=== PATIENT | male | born 1940 | race Caucasian/White ===

== ENCOUNTER 2017-03-21 09:13 | Observation (INO) | payer MEDICARE, BC ==
--- NOTE | 2017-03-21 09:17 | ERNOTE ---
Neuro HPI ER Record Presenting Symptoms: weakness Time Seen by Provider: 03/21/17 09:13 Source: patient Allergies/Adverse Reactions: Allergies Allergy/AdvReac Type Severity Reaction Status Date / Time No Known Allergies Allergy Verified 03/21/17 11:41 Home Medications: HOME MEDICATIONS Aspirin [Aspirin Enteric Coated] 325 mg PO DAILY #0 tablet 07/16/12 [Last Taken Unknown] Multivitamin [Multivitamins] 1 each PO DAILY #0 capsule 07/16/12 [Last Taken Unknown] Atorvastatin Calcium [Lipitor] 40 mg PO DAILY 12/19/12 [Last Taken Unknown] - History of Present Illness Narrative: Patient had not symptoms when going to bed last night, woke up with right sided weakness this morning at 06:30, later on states that he noticed some problem around 3 or 4am dropping things when he went to the bathroom, he took two full strength aspirin at some time this morning. He denies any recent illness or head injury. He had a prior CVA about 4-5 years ago, states that he made a complete recovery. He drove himself to the ER Date (Duration): 03/21/17 Time (Timing): 06:30 Onset: upon waking, cannot confirm onset Severity: moderate - Character of Deficits New weakness: Present: RUE Altered sensation: Absent: RUE, RLE, LUE, LLE Additional Deficits: Absent: vision problems, impaired speech, difficulty swallowing, decrease ability to stand, off balance Baseline Cognition: Present: alert, oriented x 4 Baseline Gait: Present: walks w/o assistance Associated Symptoms: Denies: fever/chills, sweating, chest pain, neck/back pain , headache, decreased responsiveness Prior Treament: Reports: similar symptoms before. Denies: recently seen Review of Systems - Review of Systems Constitutional: Absent: recent illness, fever EYE: Absent: vision changes ENT: Present: no symptoms reported Respiratory: Absent: shortness of breath, cough Cardiology: Absent: chest pain Gastrointestinal/Abdominal: Absent: nausea, vomiting, abdominal pain Genitourinary: Present: no symptoms reported Musculoskeletal: Absent: back pain Neurological: Present: See HPI, weakness. Absent: headache, numbness - Patient's Past Medical History Patient History - Cardiac/Respiratory: CVA/Stroke, Hyperlipidemia - Family History Mother Family History - Medical: , No pertinent hx Family History - Cardiac/Respiratory: No pertinent hx Family History - Cancer: Other Father Family History - Medical: , History Unknown Family History - Cardiac/Respiratory: History Unknown, Hypertension Family History - Cancer: History Unknown Sister Family History - Medical: , Alzheimer's Disease Family History - Cardiac/Respiratory: History Unknown Family History - Cancer: History Unknown Physical Exam - Physical Exam General Appearance: Present: wd/wn, alert, no apparent distress, anxious Head Exam: Present: normal inspection, no evidence of injury Eye Exam: Normal inspection: bilateral, PERRL: bilateral Neck: Present: normal inspection, nontender, supple. Absent: carotid bruit Respiratory: Present: no respiratory distress, normal breath sounds, no accessory muscle use, lungs clear Cardiovascular/Chest: Present: regular rate, rhythm, no murmur Gastrointestinal/Abdominal: Present: nontender Extremity Exam: Present: no edema Neurological Exam: Present: alert, oriented, normal mood/affect Skin Exam: Present: normal color, warm/dry Sherry Coma Scale - Assess Eye Opening: Spontaneous Motor: Obeys Commands Verbal: Oriented - Total Coma Scale Total: 15 Initial Stroke Assessment - NIH Stroke Scale Level of Consciousness: Alert LOC Questions (Year and Age): Answers both correctly LOC Commands (open/close eyes/fist): Performs both correctly Lateral Gaze Paresis: None Visual Field Loss: No visual loss Facial Palsy: Minor paralysis Right Arm Motor (10 sec hold): Drift, effort made Left Arm Motor (10 sec hold): No drift Right Leg Motor (5 sec hold): Drift - minimal Left Leg Motor (5 sec hold): No drift Limb Ataxia (finger/nose heel/kebede): Absent Sensory Loss (pinprick arms/legs/face): No sensory loss Language Aphasia (description/naming/reading): No aphasia; normal Dysarthria (speech clarity): Normal articulation Neglect Inattention (visual/tactile/auditory/spatial/person): No neglect Initial Stroke Scale Score:: 4 ED Progress - Results and Orders Patient's Lab Results:: I have reviewed the patient's lab results. - Vital Signs Patient's Vital Signs:: I have reviewed the patient's vital signs. - EKG EKG: NSR, RBBB, other - no acute changes EKG read: Interp. by me - Progress/Reassessment Progress Note-Subjective: 03/21/17 09:[address] with radiologist, subacute findings on right side (not consistent with right sided symptoms) 03/21/17 09:41 patient not in window for TPA, offered transfer to stroke center to be evaluated for possible intervention, patient would like to stay here and not be transferred, understand that treatment options here are very limited 03/21/17 10:[address] De La Vega 03/21/17 10:[address] De La Vega, okay to admit, doesn't want me to order any other testing like MRI now 03/21/17 10:56 right arm drift completely resolved, speech slightly slurred Departure Clinical Impression: CVA (cerebral vascular accident) Qualifiers: CVA mechanism: unspecified Qualified Code(s): I63.9 - Cerebral infarction, unspecified - Departure Disposition: [facility] Condition: Stable
[2017-03-21 09:35] LABS: Hematocrit 39.6 % (42.0-52.0); Hemoglobin 14.2 gm/dL (13.5-18.0); Mean Cell Volume 89.8 fl (78-100); Mean Corpuscular Hemoglobin 32.2 pg (27-31); Mean Corpuscular Hgb Conc 35.9 g/dl (32-36); Mean Platelet Volume 9.4 fl (6.0-9.5); Neutrophil # 3.8 K/mm3 (1.3-6.0); Neutrophil % 59.5 % (42-75.0); Platelet Count 261 K/mm3 (150-450); Red Blood Count 4.41 M/mm3 (4.7-6.0); Red Cell Distribution Width 12.7 % (11.5-14.0); White Blood Count 6.3 K/mm3 (4.0-10.5)
[2017-03-21 09:46] LABS: Prothrombin Time (Patient) 11.4 Seconds (9.0-11.0)
[2017-03-21 09:47] LABS: INR 1.14 INR (0.90-1.10); Partial Thrombolplastin Time 28.5 Seconds (24-32)
[2017-03-21 09:49] LABS: Albumin * 3.8 gm/dl (3.4-5.0); Anion Gap 12.4 mmol/L (6.8-13.8); Bilirubin, Total 0.4 mg/dL (0.0-1.1); Ca. Corrected For Albumin 8.9 mg/dL (8.4-10.2); Calcium * 9.1 mg/dL (7.9-10.9); Carbon Dioxide 25.7 mmol/L (24-32.6); Potassium 4.1 mmol/L (3.4-4.6); Total Protein 7.2 gm/dL (6.2-8.2)
[2017-03-21] MEDS ORDERED: CLOPIDOGREL BISULFATE 75 MG TABLET PO ONE (12:31)
[2017-03-21] MEDS ORDERED: ROSUVASTATIN CALCIUM 20 MG TABLET PO ONE ×2 (12:45→13:30)
--- NOTE | 2017-03-21 17:35 | PN ---
Progess Note - Interim Narrative: ADMISSION NOTE: Patient seen and examined at bedside at approximately 1600 hrs on 03/21/17. 76-year-old WF with a history of HLD, prior CVA[ RT parietal and temporal lobe infarcts, nonhemorrhagic from RT middle cerebral artery/posterior cerebral artery watershed zone with some extension into the temporal lobe-MRI 07/2012] w/ o residual defect, TURP came into the ER for evaluation of right-sided weakness and speech problems which were present on waking up and also at approximately 4: 30 AM. Did not want EP etc. Patient was given clopidogrel 300 mg PO X1, rosuvastatin 40 mg 1 after being admitted into observation. Resolution and speech symptoms and weakness occurred. Will obtain ultrasound of the carotids. Echocardiogram in 2012 unremarkable. Labs reviewed. Mother 39-cervical cancer; father at 83-old age; sister 70's- dementia. SH- 3-4 cigars a week 30 years, quit in 1970s; occasional EtOH. Surgical history:Vasectomy, colonoscopy-04/11; TURP-2010; bilateral cataract surgery. PE: Minimal aphasia and right-sided weakness present. No memory loss. Plantars downgoing. Full H&P to be done by the hospitalist.
--- NOTE | 2017-03-21 21:34 | HP ---
Chief Complaint - Chief Complaint Date of Service: 03/21/17 Time of Service: 21:17 Chief Complaint: right arm weakness and difficulty finding his words History of Present Illness: 76 years old white male adm to the hospital with reports of right arm weakness and difficulty finding his words. pt stated approximately 3am he woke up and was unable to use his hand. Due to aphasia pt isn't able to provide details of his medical history and incident leading up to his hospitalization. His with dementia is unable to give info. Per nurse, pt woke up at 3am reached for and item and it fell. He went back to sleep and upon awake again he felt right side weakness, unsteady gait and unable to find his words. so he drove himself to the ER. PMH significant for HDL,former smoker, CVA 3 yrs ago without residual deficits. In ER CT head: No acute intra-cranial hemorrhage or mass, areas of infarct/ischemia of indeterminate age in the right middle cerebral artery territory which appear to be new since 2012. CXR:stable and No acute findings. pt is outside the window for TPA and stated he want to remains at [facility]. - Patient's Past Medical History Patient History - Medical: No pertinent hx, Cataracts Patient History - Cardiac/Respiratory: CVA/Stroke, Hyperlipidemia, Other - BPH Patient History - Cancer: No Hx of Cancer Patient History - Surgical Procedures: Colonoscopy, Other - TURP, vasectomy Patient History - Other: None - Family History Mother Family History - Medical: , No pertinent hx Family History - Cardiac/Respiratory: No pertinent hx Family History - Cancer: Cervical Father Family History - Medical: , History Unknown Family History - Cardiac/Respiratory: History Unknown, Hypertension Family History - Cancer: History Unknown Sister Family History - Medical: , Alzheimer's Disease Family History - Cardiac/Respiratory: History Unknown Family History - Cancer: History Unknown - Social History Living Situations: spouse Abuse History: No History of abuse Psych History: No pertinent hx Smoking Status: Former smoker Have you smoked in the past 12 months: No Do you dip or chew tobacco: No Smoking Stop Date: 03/05/77 Patient requests Smoking Cessation Consult: No Initiate information on Smoking Cessation: No Alcohol Use: none Drug Use: none - Immunizations Immunizations Up to Date: Yes Hx Pneumococcal Vaccination: More Information Required to Determine History of Influenza Vaccine: More Information Required to Determine Review Of Systems (GEN) - Review of Systems Generalized/Overall Review: Present: Weakness - right side EENTM: Present: No Symptoms Reported Respiratory: Present: No Symptoms Reported Abdominal: Present: No Symptoms Reported Genitourinary: Present: No Symptoms Reported Musculoskeletal: Present: No Symptoms Reported Neurological: Present: Weakness Skin: Present: No Symptoms Reported Endocrine: Present: No Symptoms Reported Allergies/Adverse Reactions: Allergies Allergy/AdvReac Type Severity Reaction Status Date / Time No Known Allergies Allergy Verified 03/21/17 11:41 Home Medications: HOME MEDICATIONS Aspirin [Aspirin Enteric Coated] 325 mg PO DAILY #0 tablet 07/16/12 [Last Taken Unknown] Multivitamin [Multivitamins] 1 each PO DAILY #0 capsule 07/16/12 [Last Taken Unknown] Atorvastatin Calcium [Lipitor] 40 mg PO DAILY 12/19/12 [Last Taken Unknown] Exam - Exam Vital Signs: Vital Signs - Last Taken Temp 36.8 C 03/21/17 19:24 Pulse 68 03/21/17 19:24 Resp 18 03/21/17 19:24 BP 177/95 03/21/17 19:24 Pulse Ox 99 03/21/17 19:24 Constitutional: Present: Alert, Oriented x3, Cooperative, Well developed, Middle aged, Looks Younger than stated age ENT Exam: Present: hearing grossly normal Eye Exam: bilateral eye: normal inspection Neck: Present: full range of motion Back Exam: Present: no CVA tenderness, no vertebral tenderness Breasts: Present: Exam deferred Respiratory: Present: chest non-tender, lungs clear, normal breath sounds, no respiratory distress Cardiovascular/Chest: Present: normal peripheral pulses, regular rate, rhythm, no chest tenderness, no edema, no gallop Peripheral Pulses: dorsalis-pedis (R): 2+, dorsalis-pedis (L): 2+ Abdomen: Present: Normal bowel sounds, soft, nontender, nondistended, no rebound tenderness /Rectal: Present: Exam deferred Extremity: Present: normal range of motion, non-tender, normal inspection, no pedal edema, no calf tenderness, other - left extremities stronger than right Skin Exam: Present: normal color, warm/dry Lymphatic: Present: no adenopathy Neurologic: Present: oriented x 3, abnormal gait, aphasia, motor weakness Appearance: Present: appropriate appearance Eye contact: Present: cooperative, good eye contact Thoughts: Present: normal thought pattern Diagnostic Studies: Laboratory Results WBC 6.3 K/mm3 (4.0-10.5) 03/21/17 09:32 RBC 4.41 M/mm3 (4.7-6.0) L 03/21/17 09:32 Hgb 14.2 gm/dL (13.5-18.0) 03/21/17 09:32 Hct 39.6 % (42.0-52.0) L 03/21/17 09:32 MCV 89.8 fl (78-100) 03/21/17 09:32 MCH 32.2 pg (27-31) H 03/21/17 09:32 MCHC 35.9 g/dl (32-36) 03/21/17 09:32 RDW 12.7 % (11.5-14.0) 03/21/17 09:32 Plt Count 261 K/mm3 (150-450) 03/21/17 09:32 MPV 9.4 fl (6.0-9.5) 03/21/17 09:32 Immature Gran % (Auto) 0.30 % (0.001-0.429) 03/21/17 09:32 Immature Gran # (Auto) 0.02 K/mm3 (0.000-0.0310) 03/21/17 09:32 Neutrophils % 59.5 % (42-75.0) 03/21/17 09:32 Lymphocytes % 26.9 % (20-51) 03/21/17 09:32 Monocytes % 9.8 % (0.0-9) H 03/21/17 09:32 Eosinophils % 2.4 % (0.0-3.0) 03/21/17 09:32 Basophils % 1.1 % (0.0-1.0) H 03/21/17 09:32 Nucleated RBC % 0.0 k/mm3 (0-1) 03/21/17 09:32 Neutrophils # 3.8 K/mm3 (1.3-6.0) 03/21/17 09:32 Lymphocytes # 1.7 k/mm3 (1.5-3.5) 03/21/17 09:32 Monocytes # 0.6 k/mm3 (0.0-1.0) 03/21/17 09:32 Eosinophils # 0.2 k/mm3 (0.0-0.7) 03/21/17 09:32 Absolute Basophils 0.1 k/mm3 (0.0-0.1) 03/21/17 09:32 ESR 14 mm/hr (0-10) H 03/21/17 09:32 PT 11.4 Seconds (9.0-11.0) H 03/21/17 09:32 INR (Anticoag Therapy) 1.14 INR (0.90-1.10) H 03/21/17 09:32 PTT (Leslie) 28.5 Seconds (24-32) 03/21/17 09:32 Sodium 139 mmol/L (132-142) 03/21/17 09:32 Plasma Sodium 139 mmol/L (130-142) 03/21/17 09:32 Potassium 4.1 mmol/L (3.4-4.6) 03/21/17 09:32 Chloride 105 mmol/L (97-106) 03/21/17 09:32 Carbon Dioxide 25.7 mmol/L (24-32.6) 03/21/17 09:32 Anion Gap 12.4 mmol/L (6.8-13.8) 03/21/17 09:32 BUN 20 mg/dL (6-23) 03/21/17 09:32 Creatinine 1.05 mg/dL (0.4-1.4) 03/21/17 09:32 Est GFR (Non-Af Amer) 73 mL/min (60-130) 03/21/17 09:32 BUN/Creatinine Ratio 19.0 (9.0-21.6) 03/21/17 09:32 Random Glucose 124 mg/dL (70-110) H 03/21/17 09:32 Calcium 9.1 mg/dL (7.9-10.9) 03/21/17 09:32 Calcium Adj for Albumin 8.9 mg/dL (8.4-10.2) 03/21/17 09:32 Total Bilirubin 0.4 mg/dL (0.0-1.1) 03/21/17 09:32 AST 24 U/L (0-48) 03/21/17 09:32 ALT 38 U/L (19-67) 03/21/17 09:32 Alkaline Phosphatase 67 U/L (50-170) 03/21/17 09:32 Total Protein 7.2 gm/dL (6.2-8.2) 03/21/17 09:32 Albumin 3.8 gm/dl (3.4-5.0) 03/21/17 09:32 CT head: No acute intra-cranial hemorrhage or mass, areas of infarct/ischemia of indeterminate age in the right middle cerebral artery territory which appear to be new since 2012. CXR:stable and No acute findings. Assessment/Plan - Narrative Narrative: CVA- On adm BP 177/95 pt report right side hemiparesis and aphasia upon awaking approximately 3am. He showed up to ER several hours later. Pt his outside the window for TPA. pt stated he had CVA 3 yrs ago, no residual deficits. Continue with neuro-checks Lipid panel, U/S carotid,Echo and MRI brain pending PT/OT and speech evaluation and treatment. Keep NPO for swallow eval and treat. continue on telemetry He was given plavix 300mg x1 and crestor 40mg x1 in ER Continue Plavix 75mg QD abd crestor 20mg QD Expressive aphasia- Due to CVA plan same as above Hyperlipidemia Crestor 40mg x1 given in ER Lipid panel pending continue with crestor 20mg QD code status: Full VTE ppx:Ambulate GI ppx: pepcid Time 35 minutes and case discussed with Dr De La Vega. - Assessment/Plan (1) CVA (cerebral vascular accident) Problem: Acute Qualifiers: CVA mechanism: unspecified Qualified Code(s): I63.9 - Cerebral infarction, unspecified (2) Aphagia Problem: Acute (3) Hyperlipidemia Problem: Chronic
[2017-03-21] MEDS: FAMOTIDINE 20 MG TABLET PO SCH (22:51)
[2017-03-22 06:25] LABS: Chol/HDL Risk Ratio 1.9 mg/dL (3.3-5.0)
--- NOTE | 2017-03-22 06:26 | PN ---
Subjective - Date and Time Seen Date: 03/22/17 Time: 06:20 Subjective Narrative: patient seen today AOX3 no acute distress, pt stated he feels much better. Gait isn't too unsteady overnight.His right arm feels better and articulate without having to struggle hard to find his words. pt anticipating diagnostic test later today. Objective - Review of Systems Generalized/Overall Review: Reports: No Symptoms Reported EENTM: Reports: No Symptoms Reported Respiratory: Reports: No Symptoms Reported Cardiac: Reports: No Symptoms Reported Abdominal: Reports: No Symptoms Reported Genitourinary Symptoms: Reports: No Symptoms Reported Musculoskeletal Complaints: Reports: Other - gait steady Neurological: Reports: No Symptoms Reported Skin: Reports: No Symptoms Reported Endocrine: Reports: No Symptoms Reported - Vitals Vitals: Last Vital Signs Temp 36.4 C L 03/22/17 03:16 Pulse 108 H 03/22/17 03:16 Resp 18 03/22/17 03:16 BP 147/82 03/22/17 03:16 Pulse Ox 98 03/22/17 03:16 - Exam Constitutional: Present: Alert, Oriented x3, Cooperative, Well nourished, No distress, Elderly ENT Exam: Present: hearing grossly normal Neck: Present: full range of motion Breasts: Present: Exam deferred Respiratory: Present: chest non-tender, lungs clear, normal breath sounds, no respiratory distress Cardiovascular/Chest: Present: normal peripheral pulses, regular rate, rhythm, no chest tenderness, no edema Abdomen: Present: Normal bowel sounds, soft, nontender, nondistended, no rebound tenderness, no hepatospenomegaly /Rectal: Present: Exam deferred Extremity: Present: normal range of motion, non-tender, normal inspection, no pedal edema, no calf tenderness Skin Exam: Present: normal color, warm/dry Neurologic: Present: alert, oriented x 3, aphasia Appearance: Present: appropriate appearance Eye contact: Present: cooperative, good eye contact Thoughts: Present: normal thought pattern Assessment/Plan Plan Narrative: CVA- On adm BP 177/95--->147/82 On adm pt report right side hemiparesis and aphasia upon awaking approximately 3am. He showed up to ER several hours later. Pt his outside the window for TPA. pt stated he had CVA 3 yrs ago, no residual deficits. Continue with neuro-checks Still pending Lipid panel, U/S carotid,Echo and MRI brain PT/OT and speech evaluation and treatment. Keep NPO for swallow eval and treat. continue on telemetry He was given plavix 300mg x1 and crestor 40mg x1 in ER Continue Plavix 75mg QD abd crestor 20mg QD aphasia- gradually improving plan same as above Hyperlipidemia Crestor 40mg x1 given in ER Lipid panel pending continue with crestor 20mg QD code status: Full VTE ppx:Ambulate GI ppx: pepcid Time 20 minutes - Problems/Diagnosis (1) CVA (cerebral vascular accident) Problem: Acute Qualifiers: CVA mechanism: unspecified Qualified Code(s): I63.9 - Cerebral infarction, unspecified (2) Aphagia Problem: Acute (3) Hyperlipidemia Problem: Chronic
[2017-03-22] MEDS: FAMOTIDINE 20 MG TABLET PO SCH (08:24)
[2017-03-22] MEDS ORDERED: MULTIVITAMINS 1 CAP CAPSULE PO SCH (09:00)
[2017-03-22] MEDS ORDERED: ROSUVASTATIN CALCIUM 20 MG TABLET PO SCH (09:00)
[2017-03-22] MEDS ORDERED: CLOPIDOGREL BISULFATE 75 MG TABLET PO SCH (09:00)
[2017-03-22 15:07] VITALS: BP 140/74
--- NOTE | 2017-03-22 22:17 | DS ---
(1) CVA (cerebral vascular accident) Problem: Suspected Qualifiers: CVA mechanism: unspecified Qualified Code(s): I63.9 - Cerebral infarction, unspecified (2) Aphagia Problem: Resolved (3) Hyperlipidemia Problem: Chronic (4) TIA (transient ischemic attack) Problem: Resolved Description of Stay: 76 years old white male adm to the hospital with reports of right arm weakness and difficulty finding his words. pt stated approximately 3am he woke up and was unable to use his hand.Due to aphasia pt wasn't able to provide details of his medical history and incident leading up to his hospitalization.Per nurse, pt woke up at 3am reached for and item and it fell. He went back to sleep and upon awake again he felt right side weakness, unsteady gait and unable to find his words. so he drove himself to the ER.In ER CT head: No acute intra-cranial hemorrhage or mass, areas of infarct/ischemia of indeterminate age in the right middle cerebral artery territory which appear to be new since 2012. CXR:stable and No acute findings. pt is outside the window for TPA and stated he want to remains at [facility]. During this adm pt remains medically stable and s/s resolved totally before discharge. Dr De La Vega plan for MRI brain on Sunday and pt will continue with his daily dose of plavix and crestor. Procedures Performed: none List Procedures: None Results and Findings: CT head: No acute intra-cranial hemorrhage or mass, areas of infarct/ischemia of indeterminate age in the right middle cerebral artery territory which appear to be new since 2012 Discharge Disposition: Home self care Disposition: Home self-care Condition: Stable Discharge Activity: Activity as tolerated Discharge Diet: Low fat/chol Problem Oriented Discharge Instructions to Patient/Family: Stroke Prevention, [id number] Additional Patient Instructions (free text): F/U WITH DR. Ny NEXT WEEK. on 03-29-17 @ 10:45am this is a TCM Appointment. BRAIN MRI ON Sunday03-26-17 @ 2:45pm. at [facility]. Prescriptions (Any new or edited meds): Clopidogrel Bisulfate [Plavix] 75 mg PO DAILY #90 tablet Rosuvastatin Calcium [Crestor] 20 mg PO DAILY #90 tablet Complete Home Medications List: Complete Home Medication List: Multivitamin [Multivitamins] 1 each PO DAILY #0 capsule 07/16/12 Clopidogrel Bisulfate [Plavix] 75 mg PO DAILY #90 tablet 03/22/17 Rosuvastatin Calcium [Crestor] 20 mg PO DAILY #90 tablet 03/22/17 Amb Orders for Discharge: MRI Brain W/WO Contrast * Time Frame: 03/26/17, Location: Determined By Patient
== END 2017-03-22 18:26 | disposition home or self-care (01) ==
LOC: ER 09:13 → INTOOBSV 10:53 → MS 10:53 → INTOOBSV 10:57 → OBSVTOIN 10:57
PROVIDERS: ADMIT Internal Medicine; ATTEND Internal Medicine
DX: I63.9 Cerebral infarction, unspecified; G81.91 Hemiplegia, unspecified affecting right dominant side; Z68.23 Body mass index [BMI] 23.0-23.9, adult; G45.9 Transient cerebral ischemic attack, unspecified; E78.5 Hyperlipidemia, unspecified; M62.81 Muscle weakness (generalized); Z87.891 Personal history of nicotine dependence; I69.920 Aphasia following unspecified cerebrovascular disease
CPT/HCPCS: 36415; 70450; 71045; 80053; 80061; 85025; 85610; 85652; 85730; 92523; 93005; 93880; 97162; 97165; 97530; 99284; G0378; G8978; G8979; G8980; G8987; G8988; G8989

== ENCOUNTER 2019-03-06 09:51 | Observation (INO) ==
[2019-03-06] MEDS ORDERED: KETOROLAC TROMETHAMINE 30 MG/ML VIAL IM ONE (10:38)
--- NOTE | 2019-03-06 10:38 | ERNOTE ---
Upper Extremity HPI - Narrative Date of Service: 03/06/19 - General Extremities Pain Location: shoulder: left Time Seen by Provider: 03/06/19 10:08 Source: patient Exam Limitations: no limitations - Immun/Allergies/Home Medications Immunizations: IMMUNIZATION HX Immunizations Up to Date Yes History of Influenza Vaccine Yes Hx Pneumococcal Vaccination Yes Allergies/Adverse Reactions: Allergies Allergy/AdvReac Type Severity Reaction Status Date / Time No Known Allergies Allergy Verified 03/04/19 08:55 Home Medications: HOME MEDICATIONS cholecalciferol (vitamin D3) 2,000 unit capsule 2,000 unit PO DAILY 10/02/17 [Last Taken Unknown] Multivitamin [One Daily Essential] 1 ea PO DAILY 10/25/17 [Last Taken Unknown] - Pain Score Pain Score #1 Pain Score: 9 - History of Present Illness Narrative: The patient is a 78 year old male who presents for limited mobility to left arm which has been present since Sunday. There are associated symptoms of left shoulder pain, warmth and fatigue. The patient reports pain to left shoulder, 11/12. There are no alleviating factors. There are aggravating factors of activity and palpation. Previous treatments have included: Tylenol with minimal improvement. The past medical history includes: BPH, CVA and HTN. The social history is positive for former smoker. The patient has had no ill contacts. Patient states that he received pneumonia vaccine to left arm. Patient states he developed increased discomfort and aching pain to left arm 3 hours following injection which he felt was just normal related to vaccine. Patient states that since he has had symptoms of chills and diaphoresis and increasing pain to left arm along with limited mobility to left shoulder and elbow joints. Review of Systems - Review of Systems Constitutional: Present: chills, diaphoresis, fatigue, malaise. Absent: fever EYE: Present: no symptoms reported ENT: Present: no symptoms reported. Absent: ear pain, nasal drainage, sore throat Respiratory: Present: no symptoms reported. Absent: shortness of breath, cough Cardiology: Present: no symptoms reported. Absent: chest pain Gastrointestinal/Abdominal: Present: nausea. Absent: vomiting, diarrhea, abdominal pain Genitourinary: Present: no symptoms reported. Absent: dysuria Musculoskeletal: Present: joint pain Skin: Present: no symptoms reported. Absent: rash Neurological: Present: weakness. Absent: numbness, tingling All Other Systems: All systems neg except as marked Medical History (Last Reviewed 03/06/19 @ 10:33 by TATIANA Granados) BPH NOS w ur obs/LUTS Onset Date: Unknown History of basal cell cancer Onset Date: Unknown Arthritis Onset Date: Unknown Hypertension Onset Date: Unknown Cerebral infarct Onset Date: ~03/2017 RT frontal infarct in 2012. left MCA infarct 03/2017 Surgical History: Surgical History (Last Reviewed 03/06/19 @ 10:33 by TATIANA Granados) H/O colonoscopy Onset Date: ~04/18/[address] Auguste H/O transurethral resection of prostate Onset Date: ~06/28/10 History of cataract surgery Onset Date: Unknown bilateral History of esophagogastroduodenoscopy (EGD) Onset Date: 10/25/17 Ayo-w/dilation. Clotest negative, minimal benign reactive gastropathy/chemical gastritis. Hx of vasectomy Onset Date: Unknown Family History: Family History (Last Reviewed 03/06/19 @ 10:33 by TATIANA Granados) Aunt Cancer ovarian, breast, stomach Father , age 83-unknown Heart disease Alcohol abuse Mother , age 30's-uterine Cancer uterine Sister , age 73-Alzheimers Alzheimers disease Sister Alive and well Social History: (Last Reviewed 03/06/19 @ 10:33 by TATIANA Granados) Social History: intermediate: No Marital status: lives independently: Yes household members: spouse number of children: 1 current occupational status: retired Service: Yes branch: [employer] Tobacco: Smoking Status: Former smoker Alcohol: alcohol intake: former alcohol intake frequency: other Substance Use: substance use type: does not use Dietary Habits: caffeine: Yes Personal Safety: victim of physical abuse: No victim of emotional abuse: No Physical Exam - Physical Exam General Appearance: Present: wd/wn, alert, moderate distress Head Exam: Present: normal inspection, no evidence of injury Eye Exam: Normal inspection: bilateral, PERRL: bilateral, EOMI: bilateral Neck: Present: normal inspection, tender lateral - left lateral Respiratory: Present: no respiratory distress, normal breath sounds, no acc essory muscle use, lungs clear Cardiovascular/Chest: Present: regular rate, rhythm, no murmur Peripheral Pulses: N=norm/S=strong/W=weak/B=bound/A=absent: Radial (L): Normal Back Exam: Present: no vertebral tenderness Extremity Exam: Present: decreased range of motion - very minimal abduction to left shoulder, flexion with difficulty to left elbow with full extension, normal ROM to left wrist, normal left hand travel pta, bony tenderness - left shoulder, joint redness - left shoulder with warmth, joint swelling - effusion noted to left shoulder Neurological Exam: Present: alert, oriented, normal mood/affect, no motor/sensory deficits. Absent: motor weakness - normal equal travel pta to bilateral hands Skin Exam: Present: normal color, warm/dry Progress - Date and Time Seen: Date and Time: 03/06/19 10:47 Patient has limited passive ROM to left shoulder, normal ROM to left elbow and wrist. 03/06/19 11:41 Message sent to via eCollect. Requests US. Will present to evaluate patient. 03/06/19 12:32 present for patient evaluation and feels that patient needs MRI for further evaluation, if MRI positive for effusion, proceed with fleuro guided aspirate for evaluation. - Results and Orders Patient's Lab Results:: I have reviewed the patient's lab results. - Vital Signs Patient's Vital Signs:: I have reviewed the patient's vital signs. Vital Signs: Vital Signs 03/06/19 10:03 Temperature 37.1 C Pulse Rate 78 Respiratory Rate 16 Blood Pressure 164/101 H O2 Sat by Pulse Oximetry 99 - X-Ray X-Ray #1 X-Ray: shoulder Interpretation: Reviewed by me X-ray Comments: IMPRESSION: 1. NO ACUTE OSSEOUS ABNORMALITY. 2. SPURRING INVOLVING THE POSTERIOR SUPERIOR ASPECT OF THE GLENOID RIM. 3. HIGH RIDING SHOULDER SUGGESTING CHRONIC ROTATOR CUFF TEAR. Electronically signed by Jossue Ca M.D.. - CT/Ultrasound CT/Ultrasound Narrative: IMPRESSION: 1. 1.8 CM OVAL COLLECTION IN THE MUSCULATURE OF THE LEFT SHOULDER, CORRESPONDING TO THE PALPABLE ABNORMALITY. THIS MOST LIKELY REFLECT A SMALL HEMATOMA. ABSCESS IS CONSIDERED LESS LIKELY BUT IS NOT EXCLUDED. Electronically signed by Jossue Ca M.D.. - Progress/Reassessment Chief Complaint: Upper Extremity Injury/Problem Departure Clinical Impression: Septic arthritis of shoulder, left Qualifiers: Septic arthritis organism: due to unspecified organism Qualified Code(s): M00.9 - Pyogenic arthritis, unspecified - Departure Disposition: Still a patient Condition: Stable
[2019-03-06 10:53] LABS: Hematocrit 39.3 % (42.0-52.0); Hemoglobin 14.1 gm/dL (13.5-18.0); Mean Cell Volume 91.4 fl (78-100); Mean Corpuscular Hemoglobin 32.8 pg (27-31); Mean Corpuscular Hgb Conc 35.9 g/dl (32-36); Mean Platelet Volume 10.3 fl (8-11.3); Platelet Count 276 K/mm3 (150-450); Red Cell Distribution Width 13.1 % (11.5-14.0); White Blood Count 13.9 K/mm3 (4.0-10.5)
[2019-03-06 10:56] LABS: Total Cells Counted 100
[2019-03-06 11:05] LABS: Albumin * 3.4 gm/dl (3.4-5.0); Anion Gap 14.2 mmol/L (6.8-13.8); BUN/Creatinine Ratio 15.9 (9.0-21.6); Bilirubin, Total 0.5 mg/dL (0.0-1.1); Ca. Corrected For Albumin 8.8 mg/dL (8.4-10.2); Calcium * 8.6 mg/dL (7.9-10.9); Carbon Dioxide 25.6 mmol/L (24-32.6); Potassium 3.8 mmol/L (3.4-4.6); Total Protein 7.6 gm/dL (6.2-8.2)
[2019-03-06 11:35] LABS: Atypical (Reactive) Lymph 4 % (0-2); Band 1 % (0-2.0); Eosinophil 2 % (0-3); Lymphocyte 3 % (20-51); Monocyte 12 % (0-9); Neutrophil 78 % (42-75); Neutrophil # 10.8 K/mm3 (1.3-6.0)
[2019-03-06 11:36] LABS: Platelet Estimate Normal (NORMAL)
[2019-03-06 11:37] LABS: RBC Morphology Normal (NORMAL)
[2019-03-06 14:27] LABS: Body Fluid WBC 61949 /uL (0-1000)
[2019-03-06 14:44] LABS: Body Fluid Appearance TURBID (CLEAR); Body Fluid Color YELLOW (COLORLESS)
[2019-03-06] MEDS ORDERED: VANCOMYCIN HCL 1 GM in DEXTROSE 5 % IN WATER 250 ML IV PRN ×2 (15:03)
[2019-03-06] MEDS ORDERED: RINGER'S SOLUTION,LACTATED 1,000 ML IV PRN (15:03)
--- NOTE | 2019-03-06 15:10 | CONS ---
- Reason for consultation (1) Septic arthritis of shoulder, left Date of Service: 03/06/19 HPI - General Date of Service: 03/06/19 Narrative: Dayday is a 78-year-old male who presented to the emergency department today with complaint of progressively increasing left shoulder pain and swelling over the last couple days. He states he received a Pneumovax vaccine on and noticed the symptoms the following day. He denies fevers or chills and complains only of pain in the left shoulder. He denies any other recent illnesses or penetrating injuries to the shoulder. We have been consulted for evaluation and management. I instructed the emergency department to obtain an ultrasound which revealed a small hematoma versus abscess in the deltoid consistent with the patient's history of a vaccine. [facility] also [facility] to have radiology perform an aspiration of the shoulder, which was done. This demonstrated cloudy synovial fluid and cell count revealed a white count of over 61,000, consistent with septic arthritis. - History of Present Illness Allergies/Adverse Reactions: Allergies No Known Allergies Allergy (Verified 03/04/19 08:55) Home Medications: Home Medications Medication Instructions Recorded Last Taken cholecalciferol (vitamin D3) 2,000 2,000 unit PO DAILY 10/02/17 Unknown unit capsule Multivitamin [One Daily Essential] 1 ea PO DAILY 10/25/17 Unknown Procedures Colonoscopy (04/18/06) Insertion of intraocular lens prosthesis at time of cataract extraction, one- stage (03/17/13) Phacoemulsification and aspiration of cataract (03/17/13) Prophylactic administration of vaccine against other diseases (07/15/12) Review of Systems - Review of Systems Narrative: As per HPI, otherwise negative. Physical Examination - Exam Narrative: Gen: alert, oriented to person, place, and time Resp: breathing non-labored on RA, normal breath sounds CV: RRR, no murmurs MSK: Left shoulder --> shoulder diffusely swollen with palpable effusion, very mild diffuse erythema, tender to palpation diffusely, severe pain with passive motion, no obvious wounds about the shoulder, distal capillary refill brisk, sensation intact light touch throughout all nerve distributions of the left upper extremity Radiology: Ultrasound of the shoulder demonstrates a approximately 1-1/2 cm diameter fluid collection in the deltoid consistent with hematoma versus abscess. Plain films of the shoulder demonstrate mild degenerative changes with no other obvious abnormalities. Vital Signs: Vital Signs - Last Taken Temp 37.1 C 03/06/19 13:00 Pulse 63 03/06/19 14:25 Resp 15 03/06/19 14:25 BP 136/78 03/06/19 14:25 Pulse Ox 97 03/06/19 14:25 O2 Oxygen Delivery Method Room Air - Results and Findings: Narrative: 78-year-old male with septic left shoulder. Patient's exam and aspirate results are consistent with septic arthritis. It is unclear whether or not this is directly related to the patient's vaccine. It would be highly unlikely for the vaccine needle to penetrate intra-articularly. The other possibility is that this formed an abscess in the deltoid that has now spread to the joint. I counseled the patient on the need for urgent irrigation and debridement of the shoulder. We will do this arthroscopically and potentially make a small incision over the deltoid abscess to address that portion of the infection in an open fashion. I counseled the patient on the risk of surgery including, but not limited to, continued infection, need for additional procedures, axillary nerve injury, postinfectious arthritis, and risks with anesthesia. After discussion he wishes to proceed with surgery. -Plan for arthroscopic irrigation and debridement of the left shoulder with possible open drainage of deltoid abscess today. -Patient n.p.o. for the last 9 hours. -Hold antibiotics until intraoperative cultures were obtained. Will give 1 g of vancomycin intraoperatively. -Plan to admit patient postoperatively for IV antibiotics. -Continue IV antibiotics postoperatively for at least 24 hours pending culture results. Lab/Microbiology results last 24 hrs: Abnormal/Pending Laboratory Last 24 HRS 03/06/19 03/06/19 03/06/19 Unknown 10:32 10:32 WBC 13.9 H RBC 4.30 L Hct 39.3 L MCH 32.8 H Neutrophils % (Manual) 78 H Lymphocytes % (Manual) 3 L Monocytes % (Manual) 12 H Neutrophils # (Manual) 10.8 H Lymphocytes # (Manual) 0.4 L Monocytes # (Manual) 1.7 H Atypic/Reactive Lymphs 4 H Anion Gap 14.2 H AST 49 H C-Reactive Prot, Quant 21.0 H Fluid WBC 04736 H Fluid RBC Greater than 1000.0 H - Assessments/Findings (1) Septic arthritis of shoulder, left Problem: Acute
[2019-03-06] MEDS ORDERED: KETOROLAC TROMETHAMINE 30 MG/ML VIAL ONE (15:29)
[2019-03-06] MEDS ORDERED: PROPOFOL VIAL IV ONE (15:29)
[2019-03-06] MEDS ORDERED: ONDANSETRON HCL/PF 2 MG/ML VIAL ONE (15:29)
[2019-03-06] MEDS ORDERED: fentaNYL CITRATE/PF 50 MCG/ML AMPUL ONE (15:29)
[2019-03-06] MEDS ORDERED: LIDOCAINE HCL 20 ML VIAL ONE (15:31)
[2019-03-06] MEDS ORDERED: BUPIVACAINE HCL 50 ML VIAL IJ ONE ×2 (16:08→16:40)
[2019-03-06] MEDS ORDERED: oxyCODONE HCL/ACETAMINOPHEN 1 TAB TABLET PO PRN (17:20)
[2019-03-06] MEDS ORDERED: ONDANSETRON HCL/PF 2 MG/ML VIAL IV PRN (17:20)
[2019-03-06] MEDS ORDERED: MAGNESIUM HYDROXIDE 30 ML UDC PO PRN (17:20)
[2019-03-06] MEDS ORDERED: ACETAMINOPHEN 500 MG TABLET PO PRN (17:20)
[2019-03-06] MEDS ORDERED: MORPHINE SULFATE 2 MG/ML DISP.SYRIN IV PRN (17:20)
[2019-03-06] MEDS ORDERED: NORMAL SALINE 1,000 ML IV PRN (17:20)
--- NOTE | 2019-03-06 17:20 | OR ---
Operative Report - Dictated Report Narrative: Date: 03/06/2019 Physician: Derrick Reyez M.D. Foreign Student Adviser: Yoni Del Toro PA-C provided a set of essential, skilled, educated hands that assisted in positioning, transfer, retraction, manipulation, irrigation, closure of wounds, and placement of dressings all of which could not be provided by the available surgical crew. Preoperative diagnosis: Septic arthritis of left shoulder Postoperative diagnosis: Septic arthritis of left shoulder Procedure: Left shoulder arthroscopic irrigation and debridement Anesthesia: General plus local Complications: None Estimated blood loss: Minimal Specimens: Synovial fluid for culture Retained implants: None Drains: None Indications: Dayday is a 78 year-old male who developed septic arthritis of the left shoulder following a Pneumovax injection 3 days ago. He was initially seen in the emergency department where work-up including aspiration of his shoulder was consistent with septic arthritis. I counseled the patient on the need for urgent irrigation and debridement. I counseled the patient on the risks of surgery including, but not limited to, , bleeding, continued infection, nerve, tendon, ligament, blood vessel injury, persistent pain, postinfectious arthritis, stiffness, need for prolonged therapy, need for additional procedures, and risks with anesthesia. Consent was obtained in the emergency department. Procedure: After marking the correct extremity in the preoperative holding area, a timeout was performed in the operating room. IV antibiotics were initially held prior to the procedure. A general anesthetic was induced by the nurse asphalt paving superintendent. This was in the supine position, then the patient was transitioned to a beachchair position with all bony prominences well-padded, head in neutral, the nonoperative arm well supported, and the legs padded with SCDs in place. The operative shoulder was then prepped and draped in a standard sterile fashion. Preoperatively the shoulder had full passive range of motion, and obvious effusion. After marking out the bony landmarks, saline was infused into the joint through a posterior lateral portal site. A marietta incision was made, and the blunt trocar and cannula was introduced into the shoulder joint. The trocar was removed and a large amount of cloudy synovial fluid was drained from the joint, some of which was collected and sent to pathology for culture. At this point, 1 g of vancomycin was given. An anterior working portal was placed in the rotator cuff interval using a spinal needle for guidance. Upon initial evaluation, there was extensive cloudy fluid and extensive debris in the joint. A 4.0 mm shaver was introduced into the joint to flush the joint and remove a large amount of loose floating debris. Further inspection revealed an obvious chronic full-thickness and retracted tear of the rotator cuff as well as signif icant cartilage loss of the glenoid and humeral head. The intra-articular and subacromial spaces were contiguous due to the massive rotator cuff tear. The shaver was used to to perform a synovectomy and remove any infected looking tissue. All purulent material was evacuated from the joint. A total of 9 L of lactated Ringer's was flushed through the shoulder joint. Once we felt the shoulder was adequately drained and debrided, all excess arthroscopic fluid was drained from the joint and all arthroscopic instruments and cannulas were removed. The portal sites were closed with 4-0 nylon. Dressings consisting of Xeroform, 4 x 4, ABD, soft roll, and tape were applied. All sponge, needle, blade, and instrument counts were correct prior to closing the wounds. The patient was awoken and transferred to the postanesthesia care unit in stable condition.
--- NOTE | 2019-03-06 17:28 | ANES ---
Post Anesthesia Discharge - Transfer of Care Transfer of Care handoff given to nurse: Yes - Discharge from PACU Discharge from PACU when meets criteria: Yes
--- NOTE | 2019-03-06 17:28 | ANES ---
Anesthesia Pre Procedure Eval Vitals/Labs: Last Vital Signs Temp 37.1 C 03/06/19 15:49 Pulse 63 03/06/19 15:49 Resp 15 03/06/19 15:49 BP 136/78 03/06/19 15:49 Pulse Ox 97 03/06/19 15:49 HOME MEDICATIONS cholecalciferol (vitamin D3) 2,000 unit capsule 2,000 unit PO DAILY 10/02/17 [Last Taken Unknown] Multivitamin [One Daily Essential] 1 ea PO DAILY 10/25/17 [Last Taken Unknown] Allergies/Adverse Reactions: Allergies Allergy/AdvReac Type Severity Reaction Status Date / Time No Known Allergies Allergy Verified 03/04/19 08:55 - Planned Procedure Planned Procedure: Left shoulder arthroscopy irrigation and debridmen Medication List Reviewed:: Yes Allergies Verified: Yes Medical History (Last Reviewed 03/06/19 @ 17:27 by Evaristo Tidwell CRNA) BPH NOS w ur obs/LUTS Onset Date: Unknown History of basal cell cancer Onset Date: Unknown Arthritis Onset Date: Unknown Hypertension Onset Date: Unknown Cerebral infarct Onset Date: ~03/2017 RT frontal infarct in 2012. left MCA infarct 03/2017 Surgical History (Last Reviewed 03/06/19 @ 17:27 by Evaristo Tidwell CRNA) H/O colonoscopy Onset Date: 04/18/16 04/18/06 [place]-small internal hemorrhoids. H/O transurethral resection of prostate Onset Date: 06/28/10 [facility]Dr. Alanis History of cataract surgery Onset Date: Unknown bilateral History of esophagogastroduodenoscopy (EGD) Onset Date: 10/25/17 10/25/17 Ayo-w/dilation. Clotest negative, minimal benign reactive gastropathy/chemical gastritis. History of excision of lesion Onset Date: 10/03/16 [facility]-[place]-cdftjiz chest wall-verruca vulgaris. Hx of vasectomy Onset Date: Unknown Family History (Last Reviewed 03/06/19 @ 17:27 by Evaristo Tidwell CRNA) Aunt Cancer ovarian, breast, stomach Father , age 83-unknown Heart disease Alcohol abuse Mother , age 30's-uterine Cancer uterine Sister , age 73-Alzheimers Alzheimers disease Sister Alive and well - Family Anesthesia History Family History:: no untoward family reactions to anesthesia - Airway/Neck/Teeth Within Normal Limits:: Yes Teeth Condition: intact Neck Exam: full range of motion Mallampatti Score: 2 Thyromental (T-M) distance: > 6 cm Mandibulo Hyoid distance: > 3 cm - Respiratory Respiratory Physical: lungs clear Smoking Status: Former smoker Sleep Apnea currently treated: No Sleep Apnea by current assessment: No - Cardiovascular Tolerate Activity: Good Heart Sounds: S1 & S2, Regular - Gastrointestinal NPO since: 729 - Anesthesia Assessment and Plan ASA Class: PS, II, E Anesthesia Type Plan: General LMA Planned difficult intubation/equipment available: No
--- NOTE | 2019-03-06 17:58 | ANES ---
Post Anesthesia Assessment - Vital Signs Vitals: Last Vital Signs Temp 36 C 03/06/19 17:40 Pulse 78 03/06/19 17:40 Resp 18 03/06/19 17:40 BP 116/88 03/06/19 17:40 Pulse Ox 97 03/06/19 17:40 Airway Patency: Normal - Mental Status Level Of Consciousness: Awake - Pain Level Pain Score: 0 - N/V Assessment Nausea/Vomiting Presence: None Dehydration:: No
[2019-03-06] MEDS: oxyCODONE HCL/ACETAMINOPHEN 1 TAB TABLET PO PRN (23:34)
[2019-03-06] MEDS: SENNOSIDES/DOCUSATE SODIUM 1 TAB TABLET PO SCH (23:34)
[2019-03-07] MEDS: VANCOMYCIN HCL 1 GM in DEXTROSE 5 % IN WATER 250 ML IV SCH ×4 (03:24→14:43)
[2019-03-07 06:40] LABS: Anion Gap 12.6 mmol/L (6.8-13.8); BUN/Creatinine Ratio 13.8 (9.0-21.6); Calcium * 8.1 mg/dL (7.9-10.9); Carbon Dioxide 26.6 mmol/L (24-32.6); Estimated Creat Clear 71.1; Potassium 4.2 mmol/L (3.4-4.6)
[2019-03-07] MEDS: oxyCODONE HCL/ACETAMINOPHEN 1 TAB TABLET PO PRN ×2 (07:39→14:50)
[2019-03-07 08:08] LABS: Hematocrit 34.1 % (42.0-52.0); Hemoglobin 11.9 gm/dL (13.5-18.0); Mean Cell Volume 93.4 fl (78-100); Mean Corpuscular Hemoglobin 32.6 pg (27-31); Mean Corpuscular Hgb Conc 34.9 g/dl (32-36); Mean Platelet Volume 10.7 fl (8-11.3); Neutrophil # 5.9 K/mm3 (1.3-6.0); Neutrophil % 66.5 % (42-75.0); Platelet Count 250 K/mm3 (150-450); Red Blood Count 3.65 M/mm3 (4.7-6.0); Red Cell Distribution Width 13.4 % (11.5-14.0); White Blood Count 8.9 K/mm3 (4.0-10.5)
--- NOTE | 2019-03-07 13:47 | DS ---
(1) Septic arthritis of shoulder, left Problem: Acute Qualifiers: Septic arthritis organism: due to unspecified organism Qualified Code(s): M00.9 - Pyogenic arthritis, unspecified Date of Discharge:: 03/07/19 Hospital Course: Patient is 78-year-old male who was kept for observation after left shoulder arthroscopic irrigation and debridement. Patient presented to the ER and after evaluation concern for a significant infection of his left shoulder patient underwent a diagnostic aspiration of his left shoulder joint. This revealed an approximately 62,000 cell white count. Concern for an acute septic infection of his left shoulder. Discussed with patient treatment options, planned to proceed with an irrigation and debridement through left shoulder arthroscopic. Patient's procedure was uncomplicated, cultures were obtained using the synovial fluid upon entry to the joint. Patient was kept for observation and IV antibiotics. Patient began antibiotics status post cultures being obtained. Patient has had no acute events while in the hospital. Plan to continue until 24 hours of acute antibiotics have been given IV. He currently has been taking vancomycin tolerating well. Patient's pain is under control, clinically has he has improved since yesterday evening. Discussed with patient transition to outpatient IV antibiotics to the [facility]. Patient will begin a course of 7 days of IV antibiotics using Teflaro twice daily. Patient will begin these outpatient antibiotics on 03/08/2019. Patient will follow-up in orthopedic outpatient clinic in 1 week. Will monitor if patient is significantly improving we will plan to transition to p.o. antibiotics. Patient will call with any acute questions or concerns. Physical therapy is work with the patient to perform active range of motion as tolerated. He will maintain dressings on clean and dry until follow-up. Patient can use a sling for comfort. Exam today left upper extremity revealed decreased edema, sensation intact light touch, improved elbow flexion extension, diffuse mild tenderness of his left shoulder, no significant erythema extending beyond the bandages, broadcast journalist strength 5-/5. Patient will continue in the hospital this evening until 24 hours of antibiotics have been completed IV. Once completed he will be discharged home. Patient will continue on pain medication as prescribed PRN for pain. Procedures Performed: see notes below List Procedures: Left Shoulder arthroscopic irrigation and debridement Results and Findings: Pending Mircobiology Results 03/06/19 13:20 Blood Blood Culture - Preliminary NO GROWTH 24 HOURS 03/06/19 10:32 Blood Blood Culture - Preliminary NO GROWTH 24 HOURS 03/06/19 13:16 Synovial Fluid Body Fluid Culture - Preliminary No Growth Lab Pending Results 03/06/19 10:32: WBC 13.9 H, RBC 4.30 L, Hgb 14.1, Hct 39.3 L, MCV 91.4, MCH 32.8 H, MCHC 35.9, RDW 13.1, Plt Count 276, MPV 10.3, Neutrophils % (Manual) 78 H, Band Neuts % (Manual) 1, Lymphocytes % (Manual) 3 L, Monocytes % (Manual) 12 H, Eosinophils % (Manual) 2, Neutrophils # (Manual) 10.8 H, Lymphocytes # (Manual) 0.4 L, Monocytes # (Manual) 1.7 H, Eosinophils # (Manual) 0.3, Atypic/Reactive Lymphs 4 H, Platelet Estimate Normal, RBC Morphology Normal 03/06/19 10:32: Sodium 134, Plasma Sodium 134, Potassium 3.8, Chloride 98, Carbon Dioxide 25.6, Anion Gap 14.2 H, BUN 13, Creatinine 0.82, Est GFR (Non-Af Amer) 97, BUN/Creatinine Ratio 15.9, Random Glucose 78, Calcium 8.6, Calcium Adj for Albumin 8.8, Total Bilirubin 0.5, AST 49 H, ALT 28, Alkaline Phosphatase 70, C-Reactive Prot, Quant 21.0 H, Total Protein 7.6, Albumin 3.4 03/06/19 : Synovial Crystals No crystals seen 03/06/19 : Fluid Color Yellow, Fluid Appearance Turbid, Fluid WBC 88375 H, Fluid RBC Greater than 1000.0 H, Fluid Neutrophils 88, Fluid Lymphocytes 8, Fluid Monocytes 4 03/07/19 06:16: Sodium 139, Plasma Sodium 139, Potassium 4.2, Chloride 104, Carbon Dioxide 26.6, Anion Gap 12.6, BUN 12, Creatinine 0.87, Est GFR (Non-Af Amer) 90, BUN/Creatinine Ratio 13.8, Random Glucose 93, Calcium 8.1 03/07/19 06:16: WBC 8.9 D, RBC 3.65 L, Hgb 11.9 L, Hct 34.1 L, MCV 93.4, MCH 32.6 H, MCHC 34.9, RDW 13.4, Plt Count 250, MPV 10.7, Immature Gran % (Auto) 0.60 H, Immature Gran # (Auto) 0.05 H, Neutrophils % 66.5, Lymphocytes % 17.7 L, Monocytes % 12.2 H, Eosinophils % 2.4, Basophils % 0.6, Nucleated RBC % 0.0, Neutrophils # 5.9, Lymphocytes # 1.58, Monocytes # 1.1 H, Eosinophils # 0.2, Absolute Basophils 0.1 Discharge Location: Home Disposition: Home self-care Condition: Good Discharge Activity: Activity as tolerated - Active range of motion of left upper extremity as tolerated Discharge Diet: General/regular food Referrals: Demetrius Campo MD [Primary Care Provider] - Problem Oriented Discharge Instructions to Patient/Family: Incision and Drainage, Care After, Septic Arthritis Print Language (Icelandic or Comoran Available): Icelandic Additional Patient Instructions (free text): Your antibiotic infusions start tomorrow at 8am and 8pm in the [facility]. Please check in at ED registration. Prescriptions (Any new or edited meds): oxyCODONE HCL/ACETAMINOPHEN [Percocet 5 MG/325 MG] 1 - 2 tab PO Q4H PRN #40 tab PRN Reason: Severe Pain (Pain Scale 7-10) Transmission Status: Sent to [place], [place] Complete Home Medications List: Complete Home Medication List: cholecalciferol (vitamin D3) 2,000 unit capsule 2,000 unit PO DAILY 10/02/17 oxyCODONE HCL/ACETAMINOPHEN [Percocet 5 MG/325 MG] 1 - 2 tab PO Q4H PRN #40 tab 03/07/19
[2019-03-07 20:19] VITALS: BP 120/71
[2019-03-07] MEDS: SENNOSIDES/DOCUSATE SODIUM 1 TAB TABLET PO SCH (20:28)
== END 2019-03-07 21:21 | disposition home or self-care (01) ==
LOC: ER 09:51 → MS 15:01 → AMB 15:01 → OBSVTOIN 17:28 → INTOOBSV 17:28
PROVIDERS: ADMIT Orthopaedic Surgery; ATTEND Orthopaedic Surgery
CPT/HCPCS: 36415; 73030; 76882; 77002; 80048; 80053; 85025; 86140; 87040; 87070; 87205; 89051; 89060; 97161; 99282; 99285; G0378; J2405